=== PATIENT | female | born 1950 | race Caucasian/White ===

== ENCOUNTER 2017-08-02 19:58 | Emergency (ER) | payer OTHER ==
--- NOTE | 2017-08-02 20:27 | ED Physician Chart ---
ED Chief Complaint/HPI - Patient Information Date Seen:: 08/02/17 Time Seen:: 20:10 Chief Complaint:: syncopal episode History of Present Illness:: Patient was in bed almost all day today for low back pain. When she got out of bed this evening she felt dizzy and had a syncopal episode striking her occipital scalp. She regained consciousness quickly. She has no history of prior syncopal episodes. Paramedics EKG showed a normal sinus rhythm with a rate of 86. Patient is not on any anticoagulant. 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) Review:: Nurse's Note Reviewed ED Review of Systems - Review of Systems General/Constitutional: No fever, No chills Skin: No skin lesions Head: Light headed Eyes: No loss of vision ENT: No earache Neck: No neck pain, No swelling Cardio Vascular: No chest pain, No palpitations Pulmonary: No SOB GI: No nausea, No vomiting, No diarrhea G/U: No dysuria Musculoskeletal: Bone or joint pain Endocrine: No polyuria Psychiatric: No prior psych history Hematopoietic: No bruising Allergic/Immuno: No urticaria Neurological: Syncope ED Past Medical History - Past Medical History Past Medical History: Other (decreased range of motion of her left shoulder which she describes as a frozen shoulder and left knee pain) Family History: None Social History: Non Smoker, Other (occasional alcohol) Family Medical History - Family Member Mother History Unknown: Yes Ethnicity: Non- Living Status: Unknown ED Physical Exam - Physical Examination General/Constitutional: Well-developed, well-nourished, Alert, No distress Head: Atraumatic Eyes: Lids, conjuctiva normal, PERRL Other Skin comments:: 2 cm occipital scalp laceration ENMT: External ears, nose nl, TM canals nl, Nasal exam nl, Lips, teeth, gums nl Neck: No nuchal rigidity Respiratory: Nl effort/Exclusion, Clear to Auscultation, No Wheeze/Rhonchi/Rales Cardio Vascular: RRR, No murmur, gallop, rubs GI: No tenderness/rebounding/guarding, No organomegaly, No hernia, Nondistended , No mass/bruits : No CVA tenderness Extremities: Normal digits & nails Neuro/Psych: Alert/oriented, No focal deficits ED Assessment - Assessment General Assessment: Patient's had low back pain today but she walked well with slight assistance from her before discharge Location:: 2 cm occipital scalp laceration Dermabonded ED Septic Shock - . Is Septic Shock (SBP<90, OR Lactate>4 mmol\L) present?: No ED Reassessment (Disposition) - Reassessment Reassessment Condition:: Improved - Diagnosis Diagnosis:: Vasovagal syncope; 2 cm occipital scalp laceration; low back pain - Aftercare/Follow up Instructions Aftercare/Follow-Up Instructions:: Refer to Discharge Instructions - Patient Disposition Discharge/Transfer:: Home Condition at Disposition:: Stable, Improved ED Discharge Plan - Patient Disposition Instructions: Laceration Care, Adult, [id number], Vasovagal Syncope, Adult
== END 2017-08-02 22:00 | disposition home or self-care (01) ==
LOC: ER 19:58
DX: S01.01XA Laceration without foreign body of scalp, initial encounter (principal); R55 Syncope and collapse; M54.5 Low back pain; Z88.0 Allergy status to penicillin; Z88.7 Allergy status to serum and vaccine; X58.XXXA Exposure to other specified factors, initial encounter; Y93.89 Activity, other specified; Y92.89 Other specified places as the place of occurrence of the external cause; Y99.8 Other external cause status
CPT/HCPCS: 12001; Z7502